=== PATIENT | female | born 1945 | race Caucasian/White ===

== ENCOUNTER 2023-01-03 09:24 | Inpatient (IN) | payer MEDICARE, OTHER ==
[~2023-01-03] VITALS: Ht 160 cm; Wt 70.8 kg
--- NOTE | 2023-01-03 09:45 | NUR ---
BIB FAMILY C/O DIZZINESS, INTERMITTENT X 1 WEEK. WOSRT TODAY. EDEMA AT LOWER EXTREMITIES AND MILD PAIN AT RIGHT KNEE WHEN AMBULATING. DENIES CP.
--- NOTE | 2023-01-03 09:53 | NUR ---
Dr. Woodson at bedside.
--- NOTE | 2023-01-03 10:12 | NUR ---
EMT at bedside for EKG.
--- NOTE | 2023-01-03 10:18 | NUR ---
PT unable to provide urine sample at the moment.
[2023-01-03] MEDS ORDERED: IV NS 0.9% 1,000 ML BAG IV ONE (10:30)
--- NOTE | 2023-01-03 10:30 | NUR ---
Blood drawn and sent to lab.
[2023-01-03 10:45] LABS: BASOPHILS % (AUTO) 0.8 % (0.0-2.0); HEMATOCRIT 31 % (33-45); LYMPHOCYTES # (AUTO) 1.7 K/uL (0.8-4.8); LYMPHOCYTES % (AUTO) 30.2 % (20.0-44.0); MEAN CORPUSCULAR HGB CONC 32 g/dl (31.0-36.0); MEAN CORPUSCULAR VOLUME 93 fL (82-100); MONOCYTES # (AUTO) 0.4 K/uL (0.1-1.30); MONOCYTES % (AUTO) 7.3 % (2.0-12.0); NEUTROPHILS # (AUTO) 3.1 K/uL (1.8-8.9); NEUTROPHILS % (AUTO) 56.7 % (43.0-81.0); PLATELET COUNT (AUTO) 268 K/uL (150-450); RED BLOOD CELL COUNT(AUTO) 3.32 MIL/uL (4.0-5.2); WHITE BLOOD COUNT (AUTO) 5.5 K/uL (4.3-11.0)
[2023-01-03 10:53] LABS: CALCIUM, SERUM 9.1 mg/dL (8.5-10.1); CARBON DIOXIDE 23 mmol/L (21-32); CHLORIDE 108 mmol/L (98-107); GLUCOSE 100 mg/dL (74-106); POTASSIUM 4.8 mmol/L (3.5-5.1); SODIUM SERUM 138 mmol/L (136-145); UREA NITROGEN, BLOOD 29 mg/dL (7-18)
--- NOTE | 2023-01-03 11:27 | NUR ---
Covid swab sample collected and sent to lab.
--- NOTE | 2023-01-03 11:52 | NUR ---
[facility] CALLED REVENUE STAMPER PAGED.
--- NOTE | 2023-01-03 12:05 | NUR ---
Urine sample collected and sent to lab.
--- NOTE | 2023-01-03 12:20 | NUR ---
[facility] CALLED SAMPLE PREP TECHNICIAN PAGED.
[2023-01-03 12:25] LABS: BILIRUBIN,URINE NEGATIVE (NEGATIVE); COLOR,URINE YELLOW (YELLOW); LEUKOCYTE ESTERASE ,URINE TRACE (NEGATIVE); NITRITE, URINE NEGATIVE (NEGATIVE); PH,URINE 5.5 (5.0-8.0); PROTEIN,URINE NEGATIVE (NEGATIVE); UGLUCOSE NEGATIVE (NEGATIVE); UROBILINOGEN,URINE 0.2 EU/dL (0.2)
[2023-01-03] MEDS ORDERED: ATEN50TA PO (12:31)
[2023-01-03] MEDS ORDERED: AMLO-212 PO (12:31)
[2023-01-03 12:49] LABS: BACTERIA,URINE 4+ /HPF (None Seen); RBC,URINE NONE SEEN /HPF (0-2); SQUAMOUS EPITHELIAL CELL,UR Few /HPF (None Seen); WBC,URINE 0-3 /HPF (0-3)
[2023-01-03] MEDS ORDERED: CEFTRIAXONE 1GM BAG (ER ONLY) 50 ML IV ONE (13:27)
[2023-01-03] MEDS ORDERED: CEFTRIAXONE 1GM BAG (ER ONLY) 1 GM/50 ML PIGGYBACK IV ONE (13:30)
--- NOTE | 2023-01-03 14:50 | NUR ---
ROOM ASSIGNED. 327.2 ADMITTING AWARE
--- NOTE | 2023-01-03 15:24 | NUR ---
Report given to ALLA Powell
--- NOTE | 2023-01-03 15:26 | NUR ---
pt transferred to [facility] via [facility] acls protocol. warm handoff given to rn assigned.
[2023-01-03] MEDS ORDERED: IV NS 0.9% 1,000 ML IV PRN (16:00)
[2023-01-03] MEDS ORDERED: ACETAMINOPHEN 325 MG TABLET PO PRN (16:00)
[2023-01-03] MEDS ORDERED: ONDANSETRON HCL/PF 4 MG/2 ML VIAL IVP PRN (16:00)
--- NOTE | 2023-01-03 16:02 | NUR ---
ADMISSION NOTES RECEIVED PATIENT FROM ER A/OX4, ON RA TOLERATING WELL WITH SPO2 OF 99%. ABLE TO MAKE NEEDS KNOWN. WITH IV ACCESS RAC #20 Addendum: 01/03/23 at 1607 by ROLO BUSTILLOS RN WITH IV ACCESS G. 20 SALINE LOCK. ON TELE MONITOR READING SR 65.NO C/O OF DIZZINESS/PAIN AT THIS MOMENT. INITIAL VITALS TAKEN AND RECORDED. ORIENTED TO THE UNIT, SAFETY MEASURES MAINTAINED: BED LOCKED AND IN LOWEST POSITION, HOB ELEVATED, SIDE RAILS UP x2, CALL LIGHT WITHIN REACH. KEPT CLEAN AND COMFORTABLE. WILL CONTINUE TO MONITOR.
[2023-01-03] MEDS: CEFTRIAXONE 1 G in IV D5W 50 ML IV SCH (17:33)
[2023-01-03] MEDS: ENOXAPARIN SODIUM 30 MG/0.3 ML DISP.SYRIN SQ SCH (17:34)
[2023-01-03] MEDS: IV NS 0.9% 1,000 ML IV PRN (17:36)
--- NOTE | 2023-01-03 19:50 | NUR ---
LOCOMOTIVE BOILERMAKER OPENING NOTE PATIENT AWAKE IN BED, ALERT/ORIENTED X 4, KITTITIAN SPEAKING ONLY. PATIENT STABLE ON RA, NO S/S OF DISTRESS OR SOB NOTED, BREATHING EVEN AND UNLABORED. PATIENT ON EXTERNAL SALES FINANCIAL ANALYST READING SINUS RHYTHM, HR: 61. IV ACCESS ON RIGHT AC #20G INTACT AND FLUSHING WELL, IV PUMP OFF AT THIS TIME, TURNED BACK ON IVF NS @ 75 ML/HR. ASSISTED PATIENT TO BATHROOM WITH SBA. SAFETY MEASURES IN PLACE: CALL LIGHT WITHIN REACH, SIDE RAILS UP X 3, BED LOCKED IN LOWEST POSITION, HOB ELEVATED, BED ALARM ON. WILL CONTINUE TO MONITOR PATIENT
[2023-01-03 20:00] VITALS: BP 144/59
--- NOTE | 2023-01-03 20:06 | NUR ---
RN CLOSING NOTES\ PATIENT AWAKE IN BED A/OX4, ON RA TOLERATING WELL WITH SPO2 OF 99%. ABLE TO MAKE NEEDS KNOWN. WITH IV ACCESS G. 20 WITH NS AT 75ML/HR. ON TELE MONITOR READING SR 68. NO C/O OF DIZZINESS/PAIN AT THIS MOMENT. ALL DUE MEDS GIVEN. KEPT COMFORTABLE. SAFETY MEASURES MAINTAINED: BED LOCKED AND IN LOWEST POSITION, HOB ELEVATED, SIDE RAILS UP x2, CALL LIGHT WITHIN REACH. KEPT CLEAN AND COMFORTABLE. WILL ENDORSED TO INCOMING NURSE.
[2023-01-04 06:31] LABS: BASOPHILS % (AUTO) 0.9 % (0.0-2.0); EOSINOPHILS % (AUTO) 8.2 % (0.0-6.0); HEMATOCRIT 30 % (33-45); HEMOGLOBIN 9.8 g/dL (11.5-14.8); LYMPHOCYTES # (AUTO) 1.8 K/uL (0.8-4.8); LYMPHOCYTES % (AUTO) 37.7 % (20.0-44.0); MEAN CORPUSCULAR HGB CONC 33 g/dl (31.0-36.0); MEAN CORPUSCULAR VOLUME 93 fL (82-100); MONOCYTES # (AUTO) 0.4 K/uL (0.1-1.30); MONOCYTES % (AUTO) 8.9 % (2.0-12.0); NEUTROPHILS # (AUTO) 2.1 K/uL (1.8-8.9); NEUTROPHILS % (AUTO) 44.3 % (43.0-81.0); PLATELET COUNT (AUTO) 252 K/uL (150-450); WHITE BLOOD COUNT (AUTO) 4.7 K/uL (4.3-11.0)
[2023-01-04 06:43] LABS: CHOLESTEROL 223 mg/dL (<200); HDL CHOLESTEROL 36 mg/dL (40-60); LDL 156 mg/dL (0-99); TRIGLYCERIDES 142 mg/dL (30-150)
[2023-01-04 06:47] LABS: CALCIUM, SERUM 8.8 mg/dL (8.5-10.1); CARBON DIOXIDE 23 mmol/L (21-32); CHLORIDE 110 mmol/L (98-107); CREATININE 1.4 mg/dL (0.6-1.3); GLUCOSE 98 mg/dL (74-106); MAGNESIUM 2.2 mg/dL (1.8-2.4); PHOSPHORUS 3.2 mg/dL (2.5-4.9); POTASSIUM 4.3 mmol/L (3.5-5.1); SODIUM SERUM 141 mmol/L (136-145); UREA NITROGEN, BLOOD 22 mg/dL (7-18)
[2023-01-04 07:00] VITALS: BP 138/64
--- NOTE | 2023-01-04 07:35 | NUR ---
HUMAN RESOURCE INTERNSHIP CLOSING NOTE PATIENT SLEEPING IN BED, ALERT/ORIENTED X 4, WELSH SPEAKING ONLY. PATIENT STABLE ON RA, NO S/S OF DISTRESS OR SOB NOTED, BREATHING EVEN AND UNLABORED. PATIENT ON EXTERNAL NIKE ATHLETE READING SINUS GABY, HR: 57. IV ACCESS ON RIGHT AC #20G INTACT AND INFUSING NS @ 75 ML/HR. ASSISTED PATIENT TO BATHROOM WITH SBA MULTIPLE TIMES THIS SHIFT, MEDICATIONS GIVEN ORDERED, PT NEEDS MET THROUGHOUT SHIFT. SAFETY MEASURES IN PLACE: CALL LIGHT WITHIN REACH, SIDE RAILS UP X 3, BED LOCKED IN LOWEST POSITION, HOB ELEVATED, BED ALARM ON. ENDORSED TO DAYSHIFT RN FOR CONTINUITY OF CARE
--- NOTE | 2023-01-04 07:45 | NUR ---
TIE MILL OPERATOR OPENING NOTE PATIENT AWAKE IN BED, ALERT/ORIENTED X 4, [place] IS[place]ER SPEAKING ONLY. PATIENT STABLE ON RA, NO S/S OF DISTRESS OR SOB NOTED, BREATHING EVEN AND UNLABORED. PATIENT ON EXTERNAL HOME HEALTH CLINICIAN READING SR, HR: 62. IV ACCESS ON RIGHT AC #20G INTACT AND INFUSING NS @ 75 ML/HR. SAFETY MEASURES IN PLACE: CALL LIGHT WITHIN REACH, SIDE RAILS UP X 3, BED LOCKED IN LOWEST POSITION, HOB ELEVATED, BED ALARM ON. WILL CONTINUE TO MONITOR
[2023-01-04] MEDS: ATENOLOL 50 MG TABLET PO SCH (14:00)
[2023-01-04] MEDS: ASPIRIN 81 MG TAB.CHEW PO SCH (14:01)
[2023-01-04] MEDS: AMLODIPINE BESYLATE 5 MG TABLET PO SCH (14:01)
[2023-01-04] MEDS: CEFTRIAXONE 1 G in IV D5W 50 ML IV SCH (15:55)
[2023-01-04] MEDS: ENOXAPARIN SODIUM 30 MG/0.3 ML DISP.SYRIN SQ SCH (15:57)
[2023-01-04] MEDS: IV NS 0.9% 1,000 ML IV PRN (16:42)
--- NOTE | 2023-01-04 18:46 | NUR ---
NPS CLOSING NOTE PATIENT AWAKE IN BED, ALERT/ORIENTED X 4. PATIENT STABLE ON RA, NO S/S OF DISTRESS OR SOB NOTED, BREATHING EVEN AND UNLABORED. PATIENT ON EXTERNAL DRILL PRESS OPERATOR HELPER READING SB: 58. IV ACCESS ON RIGHT AC #20G INTACT AND INFUSING NS @ 75 ML/HR. ALL MEDS GIVEN. KEPT PATIENT COMFORTABLE. SAFETY MEASURES IN PLACE: CALL LIGHT WITHIN REACH, SIDE RAILS UP X 3, BED LOCKED IN LOWEST POSITION, HOB ELEVATED, BED ALARM ON. ENDORSED TO NEXT NURSE.
--- NOTE | 2023-01-04 19:58 | NUR ---
DIAMOND SIZER OPENING NOTE PATIENT AWAKE IN BED, ALERT/ORIENTED X 4, TANZANIAN SPEAKING ONLY. PATIENT STABLE ON RA, NO S/S OF DISTRESS OR SOB NOTED, BREATHING EVEN AND UNLABORED. PATIENT ON EXTERNAL INTERMEDIATE MANAGER READING SINUS GABY, HR: 56. IV ACCESS ON RIGHT AC #20G INTACT AND FLUSHING WELL, IV PUMP OFF AT THIS TIME, TURNED BACK ON IVF NS @ 75 ML/HR. SAFETY MEASURES IN PLACE: CALL LIGHT WITHIN REACH, SIDE RAILS UP X 3, BED LOCKED IN LOWEST POSITION, HOB ELEVATED, BED ALARM ON. WILL CONTINUE TO MONITOR PATIENT
[2023-01-04] MEDS: ATORVASTATIN 10 MG TABLET PO SCH (22:09)
[2023-01-05] VITALS: BP 147/72
[2023-01-05 04:00] VITALS: BP 145/69
[2023-01-05 06:19] LABS: EOSINOPHILS % (AUTO) 8.7 % (0.0-6.0); HEMATOCRIT 29 % (33-45); HEMOGLOBIN 9.6 g/dL (11.5-14.8); LYMPHOCYTES # (AUTO) 1.6 K/uL (0.8-4.8); LYMPHOCYTES % (AUTO) 40.7 % (20.0-44.0); MEAN CORPUSCULAR HGB CONC 33 g/dl (31.0-36.0); MEAN CORPUSCULAR VOLUME 92 fL (82-100); MONOCYTES # (AUTO) 0.4 K/uL (0.1-1.30); MONOCYTES % (AUTO) 10.8 % (2.0-12.0); NEUTROPHILS # (AUTO) 1.6 K/uL (1.8-8.9); NEUTROPHILS % (AUTO) 38.8 % (43.0-81.0); PLATELET COUNT (AUTO) 223 K/uL (150-450); RED BLOOD CELL COUNT(AUTO) 3.15 MIL/uL (4.0-5.2)
[2023-01-05 06:31] LABS: CALCIUM, SERUM 9.1 mg/dL (8.5-10.1); CARBON DIOXIDE 24 mmol/L (21-32); CHLORIDE 109 mmol/L (98-107); CREATININE 1.4 mg/dL (0.6-1.3); GLUCOSE 98 mg/dL (74-106); MAGNESIUM 2.1 mg/dL (1.8-2.4); POTASSIUM 4.7 mmol/L (3.5-5.1); SODIUM SERUM 141 mmol/L (136-145); UREA NITROGEN, BLOOD 16 mg/dL (7-18)
--- NOTE | 2023-01-05 06:46 | NUR ---
COMPANY CONTROLLER CLOSING NOTE PATIENT SLEEPING IN BED, ALERT/ORIENTED X 4, TAM[place] SPEAKING ONLY. PATIENT STABLE ON RA, NO S/S OF DISTRESS OR SOB NOTED, BREATHING EVEN AND UNLABORED. PATIENT ON EXTERNAL DESIZING MACHINE BACK TENDER READING SINUS GABY, HR: 58. IV ACCESS ON RIGHT AC #20G INTACT AND INFUSING NS @ 75 ML/HR. ASSISTED PATIENT TO BATHROOM WITH SBA MULTIPLE TIMES THIS SHIFT, MEDICATIONS GIVEN ORDERED, PT NEEDS MET THROUGHOUT SHIFT. SAFETY MEASURES IN PLACE: CALL LIGHT WITHIN REACH, SIDE RAILS UP X 3, BED LOCKED IN LOWEST POSITION, HOB ELEVATED, BED ALARM ON. ENDORSED TO DAYSHIFT RN FOR CONTINUITY OF CARE
--- NOTE | 2023-01-05 07:55 | NUR ---
RN OPENING NOTE PATIENT AWAKE IN BED RESTING, A/O X4. NO S/S OF PAIN NOTED AT THIS TIME. ON ROOM AIR, BREATHING EVEN UNLABORED, NO DISTRESS OR SHORTNESS OF BREATH NOTED AT THIS TIME. IV ACCESS RAC #20G, INTACT PATENT AND FLUSHING WELL. FALL AND SAFETY MEASURES IN PLACE, BED ALARM ON, BED IN LOW AND LOCK POSITION, CALL LIGHT AND TABLE WITHIN EASY REACH, SIDE RAILS UP X2. WILL CONTINUE TO MONITOR.
[2023-01-05 08:00] VITALS: BP 157/54
[2023-01-05] MEDS: AMLODIPINE BESYLATE 5 MG TABLET PO SCH (09:23)
[2023-01-05] MEDS: ASPIRIN 81 MG TAB.CHEW PO SCH (09:23)
[2023-01-05] MEDS: ATENOLOL 50 MG TABLET PO SCH (09:23)
[2023-01-05] MEDS: ENOXAPARIN SODIUM 30 MG/0.3 ML DISP.SYRIN SQ SCH (15:35)
[2023-01-05] MEDS: CEFTRIAXONE 1 G in IV D5W 50 ML IV SCH (15:36)
[2023-01-05 16:00] VITALS: BP 150/71
--- NOTE | 2023-01-05 18:55 | NUR ---
RN CLOSING NOTE PATIENT AWAKE IN BED RESTING, A/O X4. NO S/S OF PAIN NOTED AT THIS TIME. ON ROOM AIR, BREATHING EVEN UNLABORED, NO DISTRESS OR SHORTNESS OF BREATH NOTED AT THIS TIME, SAT. 99%. IV ACCESS RAC #20G, INTACT PATENT AND FLUSHING WELL. SCHEDULE MEDICATIONS ADMINISTERED. PATIENT WAS ENCOURAGE TURN AND REPOSITION PER PROTOCOL. FALL AND SAFETY MEASURES IN PLACE, BED ALARM ON, BED IN LOW AND LOCK POSITION, CALL LIGHT AND TABLE WITHIN EASY REACH, SIDE RAILS UP X2. ALL NEEDS ATTENDED AND ANTICIPATED. WILL ENDORSE TO COMPO CASTER NURSE.
--- NOTE | 2023-01-05 19:30 | NUR ---
WIRE WRAPPER MACHINE OPERATOR OPENING NOTE RECEIVED PATIENT AWAKE IN BED, ALERT/ORIENTED X 4, HEBREW SPEAKING ONLY. PATIENT STABLE ON RA, NO S/S OF DISTRESS OR SOB NOTED, BREATHING EVEN AND UNLABORED. PATIENT ON TELE MONITOR READING SB 56. IV ACCESS ON RIGHT AC #20G INTACT AND FLUSHING WELL RUNNING NS @ 75 ML/HR. ALL SAFETY MEASURES IN PLACE:BED LOCKED IN THE LOWEST POSITION . CALL LIGHT WITHIN REACH, SIDE RAILS UP X 2HOB ELEVATED, BED ALARM ON. WILL CONTINUE TO MONITOR PATIENT
[2023-01-05] MEDS: ATORVASTATIN 10 MG TABLET PO SCH (21:40)
--- NOTE | 2023-01-06 07:45 | NUR ---
AREA OPERATIONS DIRECTOR CLOSING NOTE PATIENT AWAKE IN BED, ALERT/ORIENTED X 4, BAHRAINI SPEAKING ONLY. PATIENT STABLE ON RA, NO S/S OF DISTRESS OR SOB NOTED, BREATHING EVEN AND UNLABORED. PATIENT ON TELE MONITOR READING SB 57. IV ACCESS ON RIGHT AC #20G INTACT AND FLUSHING WELL RUNNING NS @ 75 ML/HR. ALL SAFETY MEASURES IN PLACE:BED LOCKED IN THE LOWEST POSITION . CALL LIGHT WITHIN REACH, SIDE RAILS UP X 2HOB ELEVATED, BED ALARM ON. WILL ENDORSE FOR AILYN.
[2023-01-06 08:00] VITALS: BP 144/62
[2023-01-06] MEDS: ASPIRIN 81 MG TAB.CHEW PO SCH (08:26)
[2023-01-06] MEDS: ATENOLOL 50 MG TABLET PO SCH (08:27)
[2023-01-06] MEDS ORDERED: AMLODIPINE BESYLATE 5 MG TABLET PO SCH (09:00)
[2023-01-06 12:00] VITALS: BP 131/59
[2023-01-06] MEDS ORDERED: ASPI-1169 PO (12:20)
[2023-01-06] MEDS ORDERED: AMOX-430 PO (12:20)
[2023-01-06] MEDS ORDERED: ATOR10TA PO (12:20)
[2023-01-06] MEDS ORDERED: AMLO-212 PO (12:20)
--- NOTE | 2023-01-06 13:31 | NUR ---
PATIENT IS A/O X3, MALAYSIAN SPEAKING. AMBULATORY WITH ASSIST. INDEPENDENT WITH REPOSITIONING. FALL PRECAUTIONS MAINTAINED AT ALL TIMES. DISCHARGE INSTRUCTIONS AND HEALTH TEACHINGS GIVEN, PT VERBALIZED UNDERSTANDING. HOME MEDS GIVEN TO THE PATIENT. ALL NEEDS HAVE BEEN MET AND ATTENDED. EDUCATED ON NEW PRESCRIPTIONS. IV ACCESS REMOVED.
== END 2023-01-06 16:33 | disposition home or self-care (01) | DRG 682 ==
LOC: ER 09:33 → TELE 15:15
PROVIDERS: ADMIT Nurse Practitioner Acute Care; ATTEND Internal Medicine
DX: N17.0 Acute kidney failure with tubular necrosis (principal); G93.41 Metabolic encephalopathy; N39.0 Urinary tract infection, site not specified; I50.32 Chronic diastolic (congestive) heart failure; D64.9 Anemia, unspecified; E78.5 Hyperlipidemia, unspecified; E86.0 Dehydration; G89.29 Other chronic pain; I11.0 Hypertensive heart disease with heart failure; G90.8 Other disorders of autonomic nervous system; R53.1 Weakness; B96.20 Unspecified Escherichia coli [E. coli] as the cause of diseases classified elsewhere; Z20.822 Contact with and (suspected) exposure to COVID-19
CPT/HCPCS: 36415; 71045-TC; 76770-TC; 80048-TC; 80061-TC; 81001; 83735-TC; 83880; 84100-TC; 84443-TC; 84484-TC; 85025-TC; 87081-TC; 87086-TC; 93307-TC; 97112-TC; 97116-TC; 97530-TC; C9803; G0378; J0696; J1650; J3490; J7030; J7060

== ENCOUNTER → 2023-01-13 | Outpatient (CLI) | payer MEDICARE, OTHER ==
[~2023-01-13] MED LIST: AMLO-212 PO; AMOX-430 PO; ASPI-1169 PO; ATEN50TA PO; ATOR10TA PO
== END | disposition home or self-care (01) ==
LOC: MSC 10:23
PROVIDERS: ATTEND Internal Medicine
DX: G90.8 Other disorders of autonomic nervous system (principal); N39.0 Urinary tract infection, site not specified; R53.1 Weakness; R53.81 Other malaise; D64.9 Anemia, unspecified; N17.9 Acute kidney failure, unspecified; G93.41 Metabolic encephalopathy; E78.5 Hyperlipidemia, unspecified